=== PATIENT | female | born 1985 | race Caucasian/White ===

== ENCOUNTER → 2019-05-07 13:24 | Outpatient (CLI) | payer OTHER, MEDICAID, SELFPAY ==
[2019-05-07 14:28] LABS: Strep Grp A by PCR Rapid Negative
== END ==
PROVIDERS: Visit Provider Physician Assistant
DX: J02.9 Acute pharyngitis, unspecified (principal); R50.9 Fever, unspecified
CPT/HCPCS: 87070; 87651

== ENCOUNTER → 2022-10-09 07:04 | Outpatient (CLI) | payer OTHER, SELFPAY ==
--- NOTE | 2022-10-09 07:06 | DI.US.S_ITS ---
PROCEDURE: US PELVIC COMPLETE INDICATIONS: HYSTERECTOMY CONSULT TECHNIQUE: Real-time scanning was performed of the pelvic organs, with image documentation. Additional endovaginal scanning was necessary due to incomplete visualization of the adnexal and endometrial structures by transabdominal scanning. COMPARISON: None. FINDINGS: Uterus: Uterus is retroverted and normal in size at 8.9 x 5.2 x 5.8 cm. The myometrium is heterogeneous. The endometrium measures 5.3 mm combined thickness. An IUD is present in the uterine fundus. Ovaries: The right ovary measures 3.5 x 2.3 x 2.6 cm, with a calculated ovarian volume of 11.2 cc. The left ovary measures 3.3 x 2.3 x 2.7 cm, with a calculated ovarian volume of 11.0 cc. The ovaries have a normal sonographic appearance. There are fewer than 12 follicles visualized in the right ovary. There are likely at least 12 subcentimeter follicles in the left ovary. No adnexal masses are seen. Other: No pathologic free abdominal or pelvic fluid. IMPRESSION: 1. IUD in the uterine fundus, as expected. 2. Greater than 12 follicles in the left ovary. This is a nonspecific finding; however in the setting of ovulatory dysfunction, PCOS could be considered in the differential. Approved by: Leta Baez M.D. on 10/09/2022 at 8:24
== END ==
PROVIDERS: PCP Family Medicine; Referring Provider Obstetrics & Gynecology; Visit Provider Obstetrics & Gynecology
DX: N92.6 Irregular menstruation, unspecified (principal); Z97.5 Presence of (intrauterine) contraceptive device
CPT/HCPCS: 76830; 76856

== ENCOUNTER 2023-01-21 06:34 | Day surgery (SDC) | payer OTHER, SELFPAY ==
[2023-01-20 08:44] VITALS: BMI 38.6
[2023-01-21] VITALS (12 sets, daily range): BP systolic 110–133; BP diastolic 58–86; PULSE 52–81; RESP 10–22; TEMP 36.1–36.8; O2SAT 94–100; BMI 38.0
--- NOTE | 2023-01-21 | PATH_ITS ---
[facility] Accession Number: [id number] No. of containers..01 Tissue . 01 Material submitted: . uterus - UTERUS AND BILATERAL FALLOPIAN TUBES . 01 Diagnosis: Uterus and Bilateral Fallopian Tubes, Hysterectomy and Bilateral Salpingectomy: Cervix: Mild chronic cervicitis; negative for dysplasia and malignancy. Endometrium: Non-proliferative endometrium without significant cytologic atypia, hyperplasia or malignancy. Negative for adenomyosis, on insurance claims representative sections. Benign intramural leiomyoma, 0.5 cm in diameter. Bilateral fallopian tubes without significant pathologic abnormalities; negative for dysplasia and malignancy. [facility] 01/26/2023 1712 Local . 01 Electronically signed: . Sandy Escobar MD, Pathologist NPI- [id number] . 01 Gross description: . The specimen is received in formalin labeled with the patient's name, , and uterus and bilateral fallopian tubes, consists of an intact uterus (137 grams, 9.2 cm superior to inferior, 6.9 cm medial to lateral, and 5.4 cm anterior to posterior) with attached cervix (3.9 x 3.7 cm), and two detached, unoriented, fimbriated fallopian tubes (4.2 x 0.6 cm and 2.4 x 0.5 cm, respectively), and no additional adnexa. The ectocervix is pink-soriano and smooth with a patulous os measuring 0.8 cm in diameter. The anterior paracervical margin is inked blue, while the posterior paracervical margin is inked black. The serosa is soriano and smooth with no evidence of hemorrhage or adhesion identified. The endocervical canal has soriano, herringbone mucosa, and measure 3.5 cm in length. The endometrial cavity measures 3.5 cm from cornu to cornu and 5.1 cm in length with pink-soriano, velvety endometrium that averages 0.2 cm thick. The myometrium is pink-soriano and trabecular measuring up to 2.4 cm in maximum thickness with a single well-circumscribed white whorled nodule measuring 0.5 cm in greatest dimension with no hemorrhage or necrosis identified. . The longer fallopian tube has soriano, disrupted serosa. Sectioning reveals a dilated lumen. The shorter fallopian tube has soriano, smooth serosa and sectioning reveals an unremarkable stellate lumen. . Diversional Therapist'S Assistant sections are submitted as follows: A1: Anterior cervix. A2: Posterior cervix. A3: Anterior full thickness section. A4: Posterior full thickness section. A5: Nodule. A6: Serosa. A7: Longer fallopian tube to include one-half of bisected fimbriae and cross sections. A8: [place] fallopian tube to include one-half of bisected fimbriae and cross sections. ([id number]) /MRV 01/26/2023 [facility]2 Local . 01 Pathologist provided ICD-10: N92.1, Z30.42 . 01 CPT . 891939 Specimen Comment: A courtesy copy of this report has been sent to [facility] Pathology Performed at: 01 [facility] Cytology [address] [place] [address] [address] [facility], [place], [place] [id number] MD Mitul Rankin MD Phone: [phone]
[2023-01-21] MEDS: SCOPOLAMINE 1 PATCH TOP (06:59)
[2023-01-21] MEDS: LACTATED RINGERS 1,000 ML 42 ML IV ×2 (07:06→08:37)
--- NOTE | 2023-01-21 07:27 | SUR.OPER ---
Lithotomy on padded OR bed. Orestes Pad Positioner under torso. Head on pillow, arms padded and tucked at sides. Legs secured in padded yellow fins stirrups.
--- NOTE | 2023-01-21 07:38 | PM.PREOP ---
Pre-operative Note COVID-19 COVID-19 status: Not tested Interval Note History & Physical reviewed/Exam performed by Physician: Yes Changes to H&P: No
[2023-01-21] MEDS: CEFAZOLIN VIAL 3 GM in SODIUM CHLORIDE 0.9% 100 ML IV (07:48)
[2023-01-21] MEDS: ACETAMINOPHEN IV 1,000 MG/100 ML VIAL 400 MG IV (08:30)
[2023-01-21] MEDS: BUPIVACAINE 0.5% W/ EPI (PF) 30 ML VIAL INJ (09:30)
--- NOTE | 2023-01-21 09:47 | PM.GYNOP.1 ---
Operative Date/Time/Diagnoses Date of procedure: 01/21/23 Time of procedure: 08:05 Pre-op diagnosis: Menometrorrhagia Post-op diagnosis: same Procedure & Clinicians Procedure: Procedures Operation Date: 01/21/23 07:45 Actual Procedure Side Surgeon p Total Laparoscopic Hysterectomy with bilateral salpingectomy, IUD removal Not Applicable Alex Mendoza MD Indications: Malathi is a 37-year-old , LMP 12/05/2022 who presented with a 1+ year history of irregular vaginal bleeding.? Patient's menarche occurred at age 12 and her periods have never been regular.? She was initiated on oral contraceptives in her teens which were somewhat helpful but ultimately discontinued when she started her family.? She is had 2 spontaneous vaginal births and had no issues with fertility.? Contraception is by vasectomy.? Her cycles last about 3 days and are light to moderate in flow but she can expect her next period to occur 10-14 days after completing each episode of bleeding.? She has a Mirena IUD in place which has been in-situ for about 2 years.? This is her 2nd Mirena IUD.? Her 1st Mirena IUD gave her very light periods which occurred every 3 or 4 months and that pattern continued for the 1st year with her new IUD.? Unfortunately over the last year so her menses have become more frequent and unpredictable despite the presence of a Mirena IUD.? Patient's Paps have always been normal with the most recent Pap smear 2 years ago.? She denies any intermenstrual bleeding or postcoital bleeding.? Pelvic ultrasound performed earlier today shows: FINDINGS:? Uterus: Uterus is retroverted and normal in size at 8.9 x 5.2 x 5.8 cm. The myometrium is heterogeneous. The endometrium measures 5.3 mm combined thickness. An IUD is present in the uterine fundus. Ovaries: The right ovary measures 3.5 x 2.3 x 2.6 cm, with a calculated ovarian volume of 11.2 cc. The left ovary measures 3.3 x 2.3 x 2.7 cm, with a calculated ovarian volume of 11.0 cc. The ovaries have a normal sonographic appearance. There are fewer than 12 follicles visualized in the right ovary. There are likely at least 12 subcentimeter follicles in the left ovary. No adnexal masses are seen. Other: No pathologic free abdominal or pelvic fluid. IMPRESSION: 1. IUD in the uterine fundus, as expected. 2. Greater than 12 follicles in the left ovary. This is a nonspecific finding; however in the setting of ovulatory dysfunction, PCOS could be considered in the differential. Endometrial sampling in October of 2022 shows no evidence of atypia or hyperplasia but did show fragments of possible polyps. After consideration of all options, the patient has elected to proceed with total laparoscopic hysterectomy with bilateral salpingectomy and presents today for preoperative evaluation, counseling, and consent. Surgeon: Alex Mendoza Management Coordinator: Shiloh Ochoa Anesthesia Type: General Operative Notes Findings: Uterus is upper limits of normal size and boggy. Both ovaries are normal in size fallopian tubes are unremarkable. There were no abnormalities of either the anterior or posterior cul-de-sac. The appendix is normal as visualized as is the upper abdomen. Closure Type: primary Specimen(s): left tube, right tube and uterus Applied: catheter Estimated blood loss (mL): 75 Blood products transfused: none Procedure in detail: With the patient in modified dorsal lithotomy position preparations were made by prepping and draping the patient in usual manner for vaginal surgery and insertion of Smith catheter. A pre-surgical time-out was then taken in accordance with [facility] policy. A bivalve speculum was then placed in the vagina and the cervix visualized. The anterior lip of the cervix was then grasped with a single-tooth tenaculum. The Mirena IUD was removed with traction on the visible strings. The uterus was sounded to 8 cm, the endocervical canal dilated slightly, and a VCare uterine manipulator with a large colpotomy cup was placed. A 1. PDS stitch was placed through the cervix to assist with subsequent removal of the uterus. The umbilicus was then infiltrated with 0.5% Marcaine with epinephrine. A 1 cm umbilical incision was made transversely and a Veress needle was used to insufflate the abdominal cavity with carbon dioxide. Once the abdomen was appropriately insufflated, a 5 mm trocar and sleeve were then placed through the umbilical incision. The scope was placed through the trocar and the initial assessment of the intra-abdominal contents carried out. A 2nd and 3rd 5 mm port was then placed 1st in the right mid quadrant from then the left mid quadrant by infiltration of the skin and subcutaneous tissues, a 1 cm transverse incision and insertion of the 5 mm bladeless port. Using a 3 puncture technique, the abdomen and pelvis were inspected laparoscopy and photographically documented. Uterus is mobilized with the VCare manipulator and attention turned to the left adnexa. The distal tube was then grasped and the fimbria varicose divided after coagulation with the PowerSeal device. The dissection was then carried out toward the cornua and the fallopian tube amputated. The tube was removed through a 5 mm port and dissection was then carried down using the PowerSeal device so as to divide the utero-ovarian ligament and the round ligament with blunt and sharp dissection of the broad down to the level of the uterine artery. The uterine artery was then skeletonized after development of a bladder flap, coagulated, and divided. Once hemostasis was assured on the left side attention was turned to the right and the tube, utero-ovarian ligament, round ligament, and broad ligament were dissected in a fashion exactly the same as it had been on the left. The right uterine artery was then visualized after skeletonization and coagulated and divided. The uterus was seen to marybeth after coagulation of both your arteries and the cup was identified through the vaginal muscularis at its insertion with the body of the cervix. Circumferential excision of the vaginal cup was accomplished without difficulty using monopolar current and the uterus mobilized. The uterus was then removed through the vagina and the vaginal cuff closed [id number] with a series of 0 Vicryl eslfeu-yr-dpuid stitches. Hemostasis was excellent, the abdomen was re-insufflated, and the pelvis inspected laparoscopically. The pelvis was inspected for any abnormality or bleeding, and the ureters were each seen to be peristalsing freely. With complete hemostasis assured, the pneumoperitoneum was vented and the ports removed. All of the 5 mm ports were then closed with 4-0 Monocryl on the skin using inverted interrupted sutures. Skin glue was placed and after the glue was dried, an appropriate dressing was applied. The case was then terminated, the patient awakened, and then transferred to PACU after having tolerated the procedure well. Complications: none Post-operative Condition: stable Disposition: PACU Plan for aftercare: Recovery in ambulatory surgery in discharge home later today if pain is under control and she is tolerating oral intake well.
[2023-01-21] MEDS: ROPIVACAINE 0.2% PF 2 MG/ML 10ML AMP 20 ML INJ (09:50)
[2023-01-21] MEDS: OXYCODONE IR 5 MG TABLET PO ×4 (10:01→20:31)
[2023-01-21] MEDS: ONDANSETRON 4 MG/2 ML INJ IV (10:02)
[2023-01-21] MEDS: KETOROLAC 30 MG/ML VIAL IV ×3 (10:44→22:26)
[2023-01-21] MEDS: LACTATED RINGERS 1,000 ML 100 ML IV (10:48)
[2023-01-21] MEDS: ACETAMINOPHEN 325 MG TABLET 650 MG PO ×2 (12:12→17:30)
[2023-01-21] MEDS: MORPHINE 2 MG/ML INJ IV (12:13)
[2023-01-21 15:08] LABS: Add Manual Diff / Slide Review NO; Basophils Absolute Auto 100 /uL (0-100); Basophils Percent Auto 0.4 % (0-2); Eosinophils Absolute Auto 0 /uL (0-450); Hematocrit 38.5 % (36-46); Hemoglobin 13.2 g/dL (12.0-16.0); Lymphocytes Absolute Auto 800 /uL (1100-4500); Lymphocytes Percent Auto 5.3 % (25-40); Mean Corpuscular HGB Conc 34.2 % (30-36); Mean Corpuscular Hemoglobin 31.6 PG (26-34); Mean Corpuscular Volume 92.6 fL (80-100); Monocytes Absolute Auto 100 /uL (0-900); Monocytes Percent Auto 0.6 % (3-14); Neutrophils Absolute Auto 13700 /uL (1500-7000); Neutrophils Percent Auto 93.7 % (50-75); Platelet Count 216 X10^3/uL (150-400); Red Blood Cell Count 4.16 X10^6/uL (4.0-5.2); Red Cell Distribution Width 12.8 % (11.6-14.8); White Blood Cell Count 14.6 X10^3/uL (4.5-11.0)
[2023-01-21] MEDS: DOCUSATE 100 MG CAPSULE 200 MG PO (20:31)
[2023-01-22] MEDS: ACETAMINOPHEN 325 MG TABLET 650 MG PO ×2 (00:55→06:23)
[2023-01-22] MEDS: MORPHINE 2 MG/ML INJ IV (02:30)
[2023-01-22 03:35] VITALS: BP 116/69; PULSE 58; RESP 18; TEMP 36.3; O2SAT 96
[2023-01-22] MEDS: KETOROLAC 30 MG/ML VIAL IV (04:28)
[2023-01-22 07:55] VITALS: BP 103/57; PULSE 57; RESP 18; TEMP 36.5; O2SAT 96
[2023-01-22] MEDS: OXYCODONE IR 5 MG TABLET PO (09:13)
[2023-01-22] MEDS: DOCUSATE 100 MG CAPSULE 200 MG PO (09:14)
--- NOTE | 2023-01-22 09:18 | PM.DS.1 ---
History of Present Illness History of Present Illness Date Patient Seen: 01/22/23 Time Patient Seen: 09:18 Chief complaint: Menometrorrhagia, IUD in place Narrative: Malathi is a 37-year-old , LMP 12/05/2022 who presented with a 1+ year history of irregular vaginal bleeding.? Patient's menarche occurred at age 12 and her periods have never been regular.? She was initiated on oral contraceptives in her teens which were somewhat helpful but ultimately discontinued when she started her family.? She is had 2 spontaneous vaginal births and had no issues with fertility.? Contraception is by vasectomy.? Her cycles last about 3 days and are light to moderate in flow but she can expect her next period to occur 10-14 days after completing each episode of bleeding.? She has a Mirena IUD in place which has been in-situ for about 2 years.? This is her 2nd Mirena IUD.? Her 1st Mirena IUD gave her very light periods which occurred every 3 or 4 months and that pattern continued for the 1st year with her new IUD.? Unfortunately over the last year so her menses have become more frequent and unpredictable despite the presence of a Mirena IUD.? Patient's Paps have always been normal with the most recent Pap smear 2 years ago.? She denies any intermenstrual bleeding or postcoital bleeding.? Pelvic ultrasound performed earlier today shows: FINDINGS:? Uterus: Uterus is retroverted and normal in size at 8.9 x 5.2 x 5.8 cm. The myometrium is heterogeneous. The endometrium measures 5.3 mm combined thickness. An IUD is present in the uterine fundus. Ovaries: The right ovary measures 3.5 x 2.3 x 2.6 cm, with a calculated ovarian volume of 11.2 cc. The left ovary measures 3.3 x 2.3 x 2.7 cm, with a calculated ovarian volume of 11.0 cc. The ovaries have a normal sonographic appearance. There are fewer than 12 follicles visualized in the right ovary. There are likely at least 12 subcentimeter follicles in the left ovary. No adnexal masses are seen. Other: No pathologic free abdominal or pelvic fluid. IMPRESSION: 1. IUD in the uterine fundus, as expected. 2. Greater than 12 follicles in the left ovary. This is a nonspecific finding; however in the setting of ovulatory dysfunction, PCOS could be considered in the differential. Endometrial sampling in October of 2022 shows no evidence of atypia or hyperplasia but did show fragments of possible polyps. After consideration of all options, the patient has elected to proceed with total laparoscopic hysterectomy with bilateral salpingectomy and is admitted now for her scheduled surgery. Discharge Providers Provider Date of admission: 01/21/2023 Discharge Date: 01/22/23 Primary care physician: Jose A Camara MD Discharge provider: Alex Mendoza MD Summary Hospital Course Discharge Diagnosis: Menometrorrhagia IUD in place Status post total laparoscopic hysterectomy with bilateral salpingectomy Hospital Course: On 01/21/2023, Malathi was admitted to [facility] for a total laparoscopic hysterectomy with bilateral salpingectomy. The procedure was performed, uneventful, and the details are well prescribe on the dictated operative note of that date. Following her surgery, the patient has had prompt return of bowel and bladder function, is ambulating independently, tolerating regular diet, and her pain is well controlled with oral pain medications. She will be discharged at this time in an never febrile normotensive condition home after counseling regarding precautionary symptoms, limitations of activity, medications, and plans for follow-up. Medications at discharge will include resumption of all pre-admission medications and will use vjzo-tnw-wnzalwd pain medications for pain relief postop. Exam Vital Signs (past 8 hours): - 01/22/23 03:35 01/22/23 07:55 Temperature 97.3 F L 97.7 F Pulse Rate 58 L 57 L Respiratory Rate 18 18 Blood Pressure 116/69 103/57 L Pulse Oximetry 96 96 Oxygen Flow Rate 0 0 Oxygen Delivery Method Room Air Oxygen Flow Rate 0 Const General: cooperative and comfortable Nutritional Appearance: average body habitus Orientation: alert and oriented x3 HENMT Head: normal to inspection, atraumatic and abrasion Ears: hearing grossly normal bilaterally Face and sinus: face symmetric Eyes General: appearance normal, both eyes and all related structures Conjunctivae: conjunctivae normal Sclera: sclerae normal EOM: EOM intact bilaterally Neck Neck: normal visual inspection Resp Effort & Inspection: normal respiratory effort and able to speak in complete sentences Auscultation: clear to auscultation bilaterally Cardio Rate: regular rate Rhythm: regular rhythm Heart Sounds: S1 normal, S2 normal and no murmurs GI Inspection: normal to inspection and incision (Surgical dressings clean and dry) Palpation: soft, no hepatosplenomegaly and tender (Mild, diffuse postsurgical tenderness) External Female Exam: other (No significant bleeding noted) Extrem General: no calf tenderness Psych Appearance: grossly normal Mental Status: mental status grossly normal Speech and Movement: speech and movement normal Mood: congruent mood Affect: normal affect Attitude: cooperative Thought Process: normal Thought Content: normal Judgment: judgment good Objective Labs 01/21/23 15:02 Labs: Laboratory Results - last 24 hr 01/21/23 15:02 WBC 14.6 H RBC 4.16 Hgb 13.2 Hct 38.5 MCV 92.6 MCH 31.6 MCHC 34.2 RDW 12.8 Plt Count 216 Neut % (Auto) 93.7 H Lymph % (Auto) 5.3 L [place] % (Auto) 0.6 L Eos % (Auto) 0.0 L Baso % (Auto) 0.4 Neut # (Auto) 67753 H Lymph # (Auto) 800 L [place] # (Auto) 100 Eos # (Auto) 0 Baso # (Auto) 100 PFSH Family History (Updated 09/26/15 @ 00:00 by Conversion Provider) Father Age: 64 Ventricular fibrillation Stroke Grandfather Heart disease Mother Age: 58 Hypertension High cholesterol Stroke Grandfather Age: 98 Skin cancer Grandmother Cancer Social History marital status: household members: spouse and children Smoking Status: Never smoker alcohol intake: current substance use type: does not use Discharge Assessment & Plan Assessment and Plan Assessment: Menometrorrhagia Intrauterine device in place Status post total laparoscopic hysterectomy with bilateral salpingectomy Plan of Treatment: Routine postoperative care with follow-up scheduled for 2 weeks postop Discharge Plan Discharge Plan Patient Disposition: Home Provider Discharge Comment: Please review the written instructions you received when you were discharged from the hospital. Your follow-up appointment is scheduled for 2 weeks after your surgery and I look forward to seeing you then. If however in the meanwhile you have any issues, concerns, or questions, please contact me either through the office phone at [phone], or via the patient portal. Discharge orders & Medications Discharge Orders: Discharge (Order); Ordered 01/22/23 Ordered By: Alex Mendoza Follow up/Referrals: Jose A Camara MD [Primary Care Provider] - Alex Mendoza MD [Physician] - Diet/Activity/Treatments Diet: Diet as Tolerated Activity: As tolerated Other treatments: Alae-ktt-qokwanj Tylenol and/or ibuprofen may be used for additional pain relief. Iwyk-zrr-ngqgfsz stool softeners and/or MiraLax may be used as needed for constipation Skin/Wound/Dressing Care Report to your healthcare provider any signs of infection, such as:: chills, fever, increased pain, unusual drainage and unusual redness Dressing: Dressings to be removed on the morning 01/23/2023. Visit Report/Discharge Packet Instructions: DI for Hysterectomy, DI for Laparoscopy, DI for Prescription Opioid Use Stand Alone Forms: Surgery Discharge Print Language: Arabic Discharge Data Primary Care Provider: Jose A Camara Attending Provider: Alex Mendoza VTE Deep Vein Thrombosis/Pulmonary Embolism Present on Admission: No
--- NOTE | 2023-01-22 11:17 | CM.DANOTE ---
Reviewed EMR and team rounds for pt's status and anticipated d/c needs. Pt d/c'd home prior to this assessment. Payor: Rebeka Mckeon Medical Attending: Dr. Alex Mendoza Pt is a 37 year-old F admitted for a laparoscopic hysterectomy with bilateral salpingectomy, completed on 01/21/23. Plan: d/c home with spouse support, f/u OP with provider. No anticipated DCP needs. Discharge Planning/Care Management CM Discharge Assessment Start: 01/22/23 11:14 Freq: Status: Active Protocol: Document 01/22/23 11:14 DPL (Rec: 01/22/23 11:16 DPL [id number]) Discharge Planning Assessment Assigned Manager Clinical Informatics JAQUAN Rodriguez Advance Directives? No History Provided By Medical Record Prior Living Arrangements House Household Members spouse,children Type of transporation used prior to Drives own vehicle admit Independent with ADL's Yes Is patient alert and oriented? Yes Comment N/A Caregiver for Another No Comment N/A Comment No anticipated d/c needs at this time. F/u OP with provider post-op. Discharge Plan Home Referrals Initiated None needed Review Status In Process Please Provide Date Initial DC 01/22/23 Assessment Was Performed Pre-Anesthesia Assessment Start: 01/20/23 08:44 Freq: Status: Discharge Protocol: Document 01/20/23 08:44 CAB (Rec: 01/20/23 08:51 CAB [id number]) Pre-Anesthesia Assessment Patient Information Reviewed Via Chart Review Primary Care Provider Jose A Camara Seen Specialist in Last 12 Months Yes Specialist Seen [employer] Secretary Primary Language Croatian Design Analyst Required No Height 172.72 cm Weight 115.212 kg Body Mass Index (BMI) 38.6 Hx Anesthesia Reactions Prior surgical history not identified Anesthesia Review Requested No Electrical Tests Supervisor No alcohol intake current Smoking Status Never smoker Patient is completely paralyzed or No completely immobile Mental Status Oriented to own ability Is patient on oxygen? No Hx Sleep Apnea No Currently Taking a Beta Lelo No Anti-Coagulant Therapy No Cardiac Testing No Hx Pacemaker/ICD No Pacemaker Rep Required? No Cardiac Clearance Received Not Applicable Urinary Catheter Present No Hx Urinary Self Catheterization No Diabetes No Patient No Marital Status Lives With spouse,children Patient Discharge Plan Description Return Home Discharge Planning/Care Management CM Discharge Assessment Start: 01/22/23 11:14 Freq: Status: Active Protocol: Document 01/22/23 11:14 DPL (Rec: 01/22/23 11:16 DPL [id number]) Discharge Planning Assessment Assigned Manager Clinical Informatics JAQUAN Rodriguez Advance Directives? No History Provided By Medical Record Prior Living Arrangements House Household Members spouse,children Type of transporation used prior to Drives own vehicle admit Independent with ADL's Yes Is patient alert and oriented? Yes Comment N/A Caregiver for Another No Comment N/A Comment No anticipated d/c needs at this time. F/u OP with provider post-op. Discharge Plan Home Referrals Initiated None needed Review Status In Process Please Provide Date Initial DC 01/22/23 Assessment Was Performed Pre-Anesthesia Assessment Start: 01/20/23 08:44 Freq: Status: Discharge Protocol: Document 01/20/23 08:44 CAB (Rec: 01/20/23 08:51 CAB [id number]) Pre-Anesthesia Assessment Patient Information Reviewed Via Chart Review Primary Care Provider Jose A Camara Seen Specialist in Last 12 Months Yes Specialist Seen [employer] Secretary Primary Language Croatian Design Analyst Required No Height 172.72 cm Weight 115.212 kg Body Mass Index (BMI) 38.6 Hx Anesthesia Reactions Prior surgical history not identified Anesthesia Review Requested No Electrical Tests Supervisor No alcohol intake current Smoking Status Never smoker Patient is completely paralyzed or No completely immobile Mental Status Oriented to own ability Is patient on oxygen? No Hx Sleep Apnea No Currently Taking a Beta Lelo No Anti-Coagulant Therapy No Cardiac Testing No Hx Pacemaker/ICD No Pacemaker Rep Required? No Cardiac Clearance Received Not Applicable Urinary Catheter Present No Hx Urinary Self Catheterization No Diabetes No Patient No Marital Status Lives With spouse,children Patient Discharge Plan Description Return Home
== END 2023-01-22 10:45 | disposition home or self-care (01) ==
LOC: OR 06:35 → AC 06:38
PROVIDERS: PCP Family Medicine; Referring Provider Obstetrics & Gynecology; Visit Provider Obstetrics & Gynecology
PROC: 0UT94ZZ Resection of Uterus, Percutaneous Endoscopic Approach (ICD-10-PCS; CPT 58571; principal; 2023-01-21 07:45)
DX: N92.1 Excessive and frequent menstruation with irregular cycle (principal); Z30.432 Encounter for removal of intrauterine contraceptive device; N72 Inflammatory disease of cervix uteri; D25.1 Intramural leiomyoma of uterus
CPT/HCPCS: 58571; 36415; 58301; 85025; J0131; J0690; J1100; J1170; J1885; J2270; J2405; J2704; J2795; J3010

== ENCOUNTER → 2023-06-17 17:13 | Outpatient (CLI) | payer OTHER, SELFPAY ==
[2023-01-21 11:15] VITALS: BMI 38.0
== END ==
PROVIDERS: PCP Family Medicine; Visit Provider Physician Assistant Surgical
DX: N39.0 Urinary tract infection, site not specified (principal)
CPT/HCPCS: 87077; 87086; 87186